=== PATIENT | male | born 2000 | race Caucasian/White ===

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

== ENCOUNTER → 2021-04-01 | Outpatient (CLI) | payer OTHER | END | disposition home or self-care (01) | LOC: LAB SHORT 11:57 → LAB EV 11:57 | DX: K29.70 Gastritis, unspecified, without bleeding (principal) | CPT/HCPCS: 87338 ==

== ENCOUNTER 2021-12-31 11:28 | Emergency (ER) | payer OTHER ==
[~2021-12-31] VITALS: Ht 185.4 cm; Wt 68.0 kg
[2021-12-31] MEDS ORDERED: NAPR500 PO (12:27)
== END 2021-12-31 12:45 | disposition home or self-care (01) ==
LOC: ER 11:28
DX: S06.9X9A Unspecified intracranial injury with loss of consciousness of unspecified duration, initial encounter (principal); S16.1XXA Strain of muscle, fascia and tendon at neck level, initial encounter; S90.31XA Contusion of right foot, initial encounter; Z88.8 Allergy status to other drugs, medicaments and biological substances; V89.2XXA Person injured in unspecified motor-vehicle accident, traffic, initial encounter
CPT/HCPCS: 70450; 72125; 73630

== ENCOUNTER 2022-01-06 20:10 | Emergency (ER) | payer OTHER ==
[~2022-01-06] VITALS: Ht 188 cm; Wt 65.8 kg
[~2022-01-06 20:10] MED LIST changes: +NAPR500 PO
[2022-01-06] MEDS ORDERED: CYCL10 PO (22:05)
[2022-01-06] MEDS ORDERED: Toradol10 MG PO (22:05)
== END 2022-01-06 22:37 | disposition home or self-care (01) ==
LOC: ER 20:10
DX: S13.4XXA Sprain of ligaments of cervical spine, initial encounter (principal); F17.200 Nicotine dependence, unspecified, uncomplicated; V89.2XXA Person injured in unspecified motor-vehicle accident, traffic, initial encounter
CPT/HCPCS: 72040; 99283-25

== ENCOUNTER 2023-04-03 01:28 | Emergency (ER) | payer OTHER ==
[~2023-04-03] VITALS: Ht 167.6 cm; Wt 72.6 kg
[~2023-04-03 01:28] MED LIST changes: +CYCL10 PO; +Toradol10 MG PO
[2023-04-03 05:18] VITALS: BP 122/77
== END 2023-04-03 05:18 | disposition home or self-care (01) ==
LOC: ER 01:28
DX: S06.9X9A Unspecified intracranial injury with loss of consciousness of unspecified duration, initial encounter (principal); S00.83XA Contusion of other part of head, initial encounter; W22.8XXA Striking against or struck by other objects, initial encounter; Z88.8 Allergy status to other drugs, medicaments and biological substances; Z79.899 Other long term (current) drug therapy; F17.210 Nicotine dependence, cigarettes, uncomplicated; R11.2 Nausea with vomiting, unspecified
CPT/HCPCS: 70450; 99284-25; A9270